=== PATIENT | female | born 1940 | race Two or more races ===

== ENCOUNTER 2016-12-17 14:19 | Emergency (ER) | payer MEDICARE, OTHER ==
[~2016-12-17] VITALS: Ht 160 cm; Wt 53.8 kg
[2016-12-17] MEDS ORDERED: HYDROmorphone 1 MG/ML, 1ML ONE (14:51)
[2016-12-17] MEDS ORDERED: ONDANSETRON ODT 4 MG ONE (14:51)
[2016-12-17] MEDS ORDERED: HYDROmorphone 1 MG/ML, 1ML IM ONE (15:00)
[2016-12-17 16:26] VITALS: BP 142/52
== END 2016-12-17 16:28 | disposition home or self-care (01) ==
LOC: ED 14:48
DX: S09.90XA Unspecified injury of head, initial encounter (principal); S16.1XXA Strain of muscle, fascia and tendon at neck level, initial encounter; S40.011A Contusion of right shoulder, initial encounter; E11.9 Type 2 diabetes mellitus without complications; E78.5 Hyperlipidemia, unspecified; I10 Essential (primary) hypertension; Z90.49 Acquired absence of other specified parts of digestive tract; W01.0XXA Fall on same level from slipping, tripping and stumbling without subsequent striking against object, initial encounter; Y93.89 Activity, other specified; Y92.000 Kitchen of unspecified non-institutional (private) residence as the place of occurrence of the external cause; Y99.8 Other external cause status
CPT/HCPCS: 70450; 72125; 73030; 73060; 96372; 99284; J1170

== ENCOUNTER 2020-06-28 10:03 | Emergency (ER) | payer MEDICARE ==
[~2020-06-28] VITALS: Ht 157.5 cm; Wt 53.0 kg
--- NOTE | 2020-06-28 10:35 | NUR ---
break RN note: pt presents to ED with c/o bilateral lower abd pain x 2 weeks, blood per rectum (spotting) x 3 days, worsened last night. pt had a colonoscopy approx 1 month ago, states this was negative. pt has history of rectal cancer, with partial colectomy in 1994. pt notes she has had lack of appetite x 6 months, no weight loss, and chronic diarrhea with no acute changes. MD aware. pt has been examined by [facility], including rectal exam with hemoccult testing. all monitors in place. pt is a&o, resps even and unlabored, nsr on radiographer cardiac catheterization with no ectopy. call light in reach. pt in gown, blanket provided, no bleeding per rectum at this time. report given back to primary RNs Enedelia and Ximena.
--- NOTE | 2020-06-28 10:59 | NUR ---
pt resting in bed attached to monitors with at bedside. zari sierra.
[2020-06-28 11:12] LABS: BASOPHILS % (AUTO) 1 % (0-1); EOSINOPHILS % (AUTO) 3 % (1-7); LYMPHOCYTES % (AUTO) 22 % (22-44); MEAN CORPUSCULAR HEMOGLOBIN 30.6 pg (27.0-34.8); MEAN CORPUSCULAR HGB CONC 34.1 g/dL (32.4-35.8); MEAN PLATELET VOLUME 8.2 fL (7.4-10.4); MONOCYTES % (AUTO) 12 % (2-9); NEUTROPHILS % (AUTO) 63 % (42-75); PLATELET COUNT 218 x10^3/uL (130-400); RED BLOOD COUNT 3.56 x10^6/uL (3.82-5.3); RED CELL DISTRIBUTION WIDTH 12.5 % (9.6-15.2)
[2020-06-28 11:14] LABS: MD NO
[2020-06-28 11:20] LABS: ALBUMIN 3.2 g/dL (3.4-5.0); ANION GAP 7 mmol/L (5-15); CALCIUM 9.2 mg/dL (8.5-10.1); CHLORIDE 101 mmol/L (98-107)
[2020-06-28 11:21] LABS: PROTHROMBIN TIME 10.7 Seconds (9.6-11.5)
[2020-06-28 11:23] LABS: ALANINE AMINOTRANSFERASE 10 U/L (12-78); ALKALINE PHOSPHATASE 43 U/L (45-117); BILIRUBIN,TOTAL 0.4 mg/dL (0.2-1.0); CREATININE 0.84 mg/dL (0.55-1.02); TOTAL PROTEIN 7.4 g/dL (6.4-8.2)
[2020-06-28 12:07] VITALS: BP 131/48
--- NOTE | 2020-06-28 12:07 | NUR ---
pt back from bathroom, zari sierra.
== END 2020-06-28 13:08 | disposition home or self-care (01) ==
LOC: ED 13:00
DX: K92.2 Gastrointestinal hemorrhage, unspecified (principal); K92.1 Melena; I10 Essential (primary) hypertension; E11.9 Type 2 diabetes mellitus without complications; E78.5 Hyperlipidemia, unspecified; Z85.038 Personal history of other malignant neoplasm of large intestine
CPT/HCPCS: 36415; 80053; 85025; 85610; 85730; 86850; 86900; 99285

== ENCOUNTER → 2020-10-01 | Outpatient (CLI) | payer MEDICARE ==
[~2020-10-01] MED LIST: BRIM5DRO2 EACHEYE; CHLO50TA PO; DIFL5DRO RIGHTEYE; GLYB2.5T2 PO; LISI30TA4 PO; METF10007 PO; SIMV20TA19 PO; TIMO5TAB RIGHTEYE
== END | disposition home or self-care (01) ==
LOC: CVU 11:40
PROVIDERS: ATTEND Internal Medicine Hematology & Oncology
DX: C34.2 Malignant neoplasm of middle lobe, bronchus or lung (principal); I35.8 Other nonrheumatic aortic valve disorders
CPT/HCPCS: 93306; 93356

== ENCOUNTER 2020-11-14 07:55 | Outpatient (CLI) | payer MEDICARE ==
[~2020-11-14 07:55] MED LIST changes: -OMNIPAQUE 350 MG/ML, 100ML BOTTLE ONE
== END 2020-11-14 23:59 | disposition home or self-care (01) ==
LOC: ROC 07:55
PROVIDERS: ATTEND Radiology Radiation Oncology
DX: C79.31 Secondary malignant neoplasm of brain (principal); C34.2 Malignant neoplasm of middle lobe, bronchus or lung; I10 Essential (primary) hypertension; E11.9 Type 2 diabetes mellitus without complications; E78.5 Hyperlipidemia, unspecified; Z85.038 Personal history of other malignant neoplasm of large intestine; Z90.49 Acquired absence of other specified parts of digestive tract
CPT/HCPCS: 99213; G0463

== ENCOUNTER → 2020-11-14 | Outpatient (CLI) | payer MEDICARE ==
[~2020-11-14] MED LIST changes: +LOPE2CAP PO; +OMNIPAQUE 350 MG/ML, 100ML BOTTLE ONE; +OSIM80TA PO; +VALS40TA2 PO; +[UNRECOGNIZED DRUG - CODE] PO; +[UNRECOGNIZED DRUG - OTHER]
== END | disposition home or self-care (01) ==
LOC: CFH 09:29
PROVIDERS: ATTEND Internal Medicine Hematology & Oncology
DX: C34.2 Malignant neoplasm of middle lobe, bronchus or lung (principal); K76.89 Other specified diseases of liver; J98.4 Other disorders of lung; J47.9 Bronchiectasis, uncomplicated; J90 Pleural effusion, not elsewhere classified; N95.9 Unspecified menopausal and perimenopausal disorder
CPT/HCPCS: 74177; Q9967